=== PATIENT | male | born 1975 | race African-American/Black ===

== ENCOUNTER 2022-12-11 11:52 | Emergency (ER) | payer MEDICAID ==
[~2022-12-11] VITALS: Ht 195.6 cm; Wt 73.0 kg
[2022-12-11 12:09] VITALS: BP 125/66
[2022-12-11] MEDS ORDERED: DIPHENHYDRAMINE 25MG CAPSULE PO ONE (13:45)
[2022-12-11] MEDS ORDERED: ALBUTEROL (0.5%) 2.5MG/0.5ML NEB HHN ONE (13:45)
[2022-12-11] MEDS ORDERED: FAMOTIDINE 20MG TABLET PO ONE (13:45)
[2022-12-11] MEDS ORDERED: FLUT1DIS3 INH (15:16)
[2022-12-11] MEDS ORDERED: ALBU6.7H3 INH (15:16)
[2022-12-11] MEDS ORDERED: P20 MT (15:16)
== END 2022-12-11 15:35 | disposition home or self-care (01) ==
LOC: ER 11:52
DX: J45.901 Unspecified asthma with (acute) exacerbation (principal); F12.10 Cannabis abuse, uncomplicated; Z91.013 Allergy to seafood; Z87.891 Personal history of nicotine dependence
CPT/HCPCS: 99281; Q0163

== ENCOUNTER 2023-10-02 13:03 | Emergency (ER) | payer MEDICAID ==
[~2023-10-02] VITALS: Ht 190.5 cm; Wt 110.0 kg
[~2023-10-02 13:03] MED LIST: ALBU6.7H3 INH; FLUT1DIS3 INH; P20 MT
[2023-10-02 13:13] VITALS: O2SAT 100
[2023-10-02] MEDS ORDERED: IBUPROFEN 600MG TABLET PO ONE (13:30)
[2023-10-02 13:59] VITALS: BP 129/80; PULSE 69; RESP 16; TEMP 98.2
== END 2023-10-02 14:01 | disposition home or self-care (01) ==
LOC: ER 13:03
DX: U07.1 COVID-19 (principal); F12.10 Cannabis abuse, uncomplicated; Z91.013 Allergy to seafood
CPT/HCPCS: 99283; 87426; 87804 ×2; C9803

== ENCOUNTER 2023-12-28 04:53 | Emergency (ER) | payer SELFPAY ==
[~2023-12-28] VITALS: Ht 182.9 cm; Wt 77.5 kg
[2023-12-28] MEDS ORDERED: PREDNISONE 20MG TABLET PO ONE (05:30)
[2023-12-28] MEDS ORDERED: IPRATROPIUM/ALBUTEROL 0.5-3(2.5)MG/3ML NEB HHN ONE (05:30)
[2023-12-28 06:13] VITALS: PULSE 98; RESP 20; O2SAT 99
[2023-12-28] MEDS ORDERED: FLUT1DIS3 INH (11:10)
[2023-12-28] MEDS ORDERED: P20 MT (11:10)
[2023-12-28] MEDS ORDERED: ALBU90AE INH (11:10)
[2023-12-28 11:42] VITALS: BP 124/78; PULSE 78; RESP 16; TEMP 98.2
== END 2023-12-28 11:46 | disposition home or self-care (01) ==
LOC: ER 05:12
DX: J45.901 Unspecified asthma with (acute) exacerbation (principal); F17.200 Nicotine dependence, unspecified, uncomplicated; F12.10 Cannabis abuse, uncomplicated
CPT/HCPCS: 94640; 71045; 99283; Z7610 ×3; J7512